=== PATIENT | female | born 1945 | race American Indian/Alaskan Native ===

== ENCOUNTER → 2024-12-01 11:19 | Outpatient (CLI) | payer OTHER, SELFPAY ==
--- NOTE | 2024-12-01 11:21 | DI.MG.S_ITS ---
MM screening mammo BI: 12/01/2024. BI-RADS: 1 CLINICAL: 79-year old female for bilateral screening mammogram. Tyrer-Cuzick lifetime risk of 6.2%. No personal or first-degree family history of breast cancer. PRIOR EXAMS 11/19/2021, 12/13/2019, 10/27/2018, 10/08/2017, MAMMOGRAPHY TECHNIQUE: 2D and 3D (tomosynthesis) digital mammographic views obtained, with additional images as needed for full coverage. Current study was also evaluated with a Computer Aided Detection (CAD) system. DENSITY C. The breasts are heterogeneously dense, which may obscure small masses. MAMMOGRAPHY FINDINGS Bilateral: No suspicious mass, asymmetry, microcalcification, or other abnormality seen. IMPRESSION: * No evidence of malignancy. RECOMMENDATIONS Bilateral * Annual screening mammography. OVERALL ASSESSMENT CATEGORY BI-RADS-1: Negative. The [employer] recommends annual screening mammography beginning at age 40 for women with average risk of breast cancer. ELECTRONICALLY SIGNED: David Posey M.D. on 12/02/2024 at 04:22:05 PM PT Interpreting Station ID: [id number]
== END ==
PROVIDERS: PCP Family Medicine; Referring Provider Family Medicine; Visit Provider Family Medicine
DX: Z12.31 Encounter for screening mammogram for malignant neoplasm of breast (principal); R92.333 Mammographic heterogeneous density, bilateral breasts
CPT/HCPCS: 77063; 77067

== ENCOUNTER → 2024-12-06 12:40 | Outpatient (CLI) | payer OTHER, SELFPAY ==
--- NOTE | 2024-12-06 12:42 | DI.RAD.S_ITS ---
PROCEDURE: XR DEXA AXIAL SKELETON INDICATIONS: screening COMPARISON: None. FINDINGS: Lumbar Spine: Bone mineral density 0.851 g/cm2, T score -1.8. Left Femoral Neck: Bone mineral density 0.726 g/cm2, T score -1.1. Left Hip: Bone mineral density 0.872 g/cm2, T score -0.6. Fracture Risk Calculation (when applicable): 10-year fracture risk of a major osteoporotic fracture 11 percent and of a hip fracture 2.0 percent. (T score greater or equal to -1.0 to: NORMAL) (T score from -1.1 to -2.4: OSTEOPENIA) (T score less than or equal to -2.5: OSTEOPOROSIS) IMPRESSION: Osteopenia--- recommend repeat DEXA in 2-3 years for reassessment. Follow-up guidelines as follows: Osteoporosis: Consider a repeat DEXA and Vertebral Fracture Assessment (VFA) exam in 2 years or sooner if medically necessary, to reassess this patient's status. Osteopenia: Consider a repeat DEXA in 2-3 years to reassess this patient's status, or if there is a new clinical indication. Normal: Consider a repeat DEXA in 5 years or sooner, or if there is a new clinical indication. All treatment decisions require clinical judgment and consideration of individual patient factors, including patient preferences, comorbidities, previous drug use, risk factors not captured in the FRAX model (e.g., frailty, falls, vitamin D deficiency, increased bone turnover, interval significant decline in bone density ) and possible under- or over-estimation of fracture risk by FRAX. In addition, the NOF Guide recommends that FDA-approved medical therapies be considered in postmenopausal women and men age >= 50 years with a: * Hip or vertebral (clinical or morphometric) fracture * T-score of <=-2.5 at the spine or hip * Ten-year fracture probability by FRAX of >= 3% for hip fracture or >=20% for major osteoporotic fracture. Dictated by: Ruy Garcia M.D. on 12/06/2024 at 18:36 Approved by: Ruy Garcia M.D. on 12/06/2024 at 18:38
== END ==
PROVIDERS: PCP Family Medicine; Referring Provider Family Medicine; Visit Provider Family Medicine
DX: M85.89 Other specified disorders of bone density and structure, multiple sites (principal); E28.319 Asymptomatic premature menopause
CPT/HCPCS: 77080

== ENCOUNTER → 2025-01-10 12:24 | Outpatient (CLI) | payer OTHER, SELFPAY ==
--- NOTE | 2025-01-10 12:26 | DI.ECHO.S_ITS ---
[facility] : : [address] : : [place] : : [id number] : : Phone: [phone] Echocardiogram Report + + :Name: CHARITY OHARAWillie Castle Study Date: 01/10/2025 Height: 62 in : :[facility] ReadingLocation: Weight: 162 lb : : Gender: Female BSA: 1.7 m2 : :: 1945 Age: 79 yrs BP: 116/70 mmHg: :Reason For Study: CARDIAC MURMUR : :Ordering Physician: MATTHEW LUCIANO : :Cynthia CATALOGING ASSISTANT Performed By: Nyasia Palacios : :Referring: MATTHEW LUCIANO CATALOGING ASSISTANT : + + Interpretation Summary 1) Normal left ventricular thickness, size, wall motion, and systolic function (EF 60-65%). 2) Mildly enlarged right ventricle with normal function. 3) No significant valvular abnormalities. 4) No prior Echo available for comparison. Procedure: A two-dimensional transthoracic echocardiogram with color flow and Doppler was performed. The study quality was technically adequate. There is no prior echocardiogram noted for this patient. The heart rate ranged between 49-60 bpm during the study. Left Ventricle: The left ventricle is normal in size and wall thickness. The ejection fraction is estimated to be 60-65%. Left ventricular systolic function appears normal without focal wall motion abnormalities. Normal diastolic function. Right Ventricle: The right ventricle is mildly dilated. The right ventricular systolic function is normal. Atria: The left atrial size is normal. Right atrial size is normal. There is no Doppler evidence for an interatrial shunt. Mitral Valve: The mitral valve leaflets appear to open well. There is mild mitral regurgitation. Aortic Valve: The aortic valve is trileaflet. The aortic valve opens well. There is no aortic valve stenosis. There is trace aortic regurgitation. Tricuspid Valve: The tricuspid valve leaflets are thin and pliable. There is mild tricuspid regurgitation. The right ventricular systolic pressure is estimated to be at least 34 mmHg based on an estimated right atrial pressure of 3 mm Hg. Pulmonic Valve: The pulmonic valve leaflets are thin and pliable; valve motion is normal. There is no pulmonic valvular regurgitation. Great Vessels: The aortic root is normal size. The ascending aorta is at the upper limits of normal in size. The IVC is of normal diameter and collapses greater than 50% with a sniff. This suggests a low right atrial pressure of 3 mm Hg. Pericardium/ Pleura There is no pericardial effusion. There is no pleural effusion. MMode/2D Measurements & Calculations LVIDd: 4.4 cm LVOT diam: 2.0 cm LVIDs: 2.8 cm Ao root diam: 3.0 cm FS: 35.7 % asc Aorta Diam: 4.0 cm IVSd: 0.85 cm Ao Arch Diam (Prox Trans): 2.4 cm LVPWd: 0.62 cm LV watson. diameter/BSA (cm/m^2): 2.5 LV sys. diameter/BSA (cm/m^2): 1.6 LA A2 area: 18.3 cm2 RA long axis: 4.3 cm LA A4 area: 16.5 cm2 RA area: 14.0 cm2 LA length (vol): 4.9 cm RA vol: 39.1 ml LA vol: 52.1 ml RA : 22.3 ml/m2 LA vol index: 29.8 ml/m2 IVC diam: 1.5 cm RVD1 (basal): 4.3 cm RVD2 (mid): 3.9 cm TAPSE: 2.1 cm Doppler Measurements & Calculations Ao V2 max: 154.5 cm/sec LVOT Max Miguelito: 109.5 cm/sec Ao V2 mean: 103.2 cm/sec LV V1 max P.8 mmHg Ao max P.5 mmHg LV V1 VTI: 24.0 cm Ao mean P.9 mmHg CLAUDIA(I,D): 2.3 cm2 Ao V2 VTI: 33.2 cm CLAUDIA(V,D): 2.3 cm2 sev ratio: 0.72 CLAUDIA indexed to BSA (cm^2/m^2): 1.3 MV E max miguelito: 58.6 cm/sec TR max miguelito: 277.5 cm/sec MV A max miguelito: 73.4 cm/sec TR max P.8 mmHg MV E/A: 0.80 PA V2 max: 96.4 cm/sec Med Peak E' Miguelito: 7.6 cm/sec PA V2 mean: 68.1 cm/sec E/E' med: 7.7 PA mean P.0 mmHg Lat Peak E' Miguelito: 8.3 cm/sec PA pr(Accel): 28.5 mmHg E/E' lat: 7.1 E/e' average: 7.4 MV dec time: 0.23 sec Pulm A Revs Miguelito: 23.8 cm/sec SV(LVOT): 76.3 ml Pulm A Revs Dur: 0.12 sec Reading Physician:02:12 PM
== END ==
LOC: ECHO 12:25
PROVIDERS: PCP Nurse Practitioner Family; Referring Provider Nurse Practitioner Family; Visit Provider Nurse Practitioner Family
DX: I08.1 Rheumatic disorders of both mitral and tricuspid valves (principal); R01.1 Cardiac murmur, unspecified
CPT/HCPCS: 93306